=== PATIENT | female | born 1995 | race Caucasian/White ===

== ENCOUNTER 2024-11-29 10:11 | Emergency (ER) | payer SELFPAY ==
[~2024-11-29] VITALS: Ht 137.2 cm; Wt 54.4 kg
[2024-11-29 10:15] VITALS: PULSE 85; RESP 16; TEMP 98.5; O2SAT 100
[2024-11-29] MEDS ORDERED: IBUPROFEN 400 MG TAB ONE (10:37)
[2024-11-29] MEDS: IBUPROFEN 400 MG TAB PO ONE (10:38)
[2024-11-29] MEDS ORDERED: ULTRAM 50MG50 MG PO (12:46)
[2024-11-29] MEDS: TRAMADOL HCL 50 MG TAB PO ONE (13:36)
== END 2024-11-29 13:40 | disposition home or self-care (01) ==
LOC: ER 10:32
DX: M25.511 Pain in right shoulder (principal); S43.081A Other subluxation of right shoulder joint, initial encounter; W01.0XXA Fall on same level from slipping, tripping and stumbling without subsequent striking against object, initial encounter; Y93.01 Activity, walking, marching and hiking; Y92.89 Other specified places as the place of occurrence of the external cause
CPT/HCPCS: 99283